=== PATIENT | male | born 1955 | race Caucasian/White ===

== ENCOUNTER 2019-10-02 06:12 | Emergency (ER) | payer SELFPAY ==
[~2019-10-02] VITALS: Ht 165.1 cm; Wt 71.3 kg
[2019-10-02 06:21] VITALS: Ht 165.1 cm; Wt 71.3 kg
[2019-10-02 06:56] VITALS: BP 153/88
== END 2019-10-02 06:56 | disposition home or self-care (01) ==
LOC: ED 06:12
DX: H10.33 Unspecified acute conjunctivitis, bilateral (principal)